=== PATIENT | male | born 1990 | race Caucasian/White ===

== ENCOUNTER 2021-12-28 12:22 | Emergency (ER) | payer SELFPAY ==
[2021-12-28 12:23] VITALS: BP 148/90; PULSE 92; RESP 18; TEMP 36.7; O2SAT 100; BMI 21.2
--- NOTE | 2021-12-28 12:32 | ECG_ITS ---
APPROVED REPORT Exam: Resting ECG HR:85 bpm ECG Measurements Heart Rate 85 AXES MA 147 P 59 QRSd 92 QRS 86 QT 335 T 19 QTc 377 Conclusion SINUS RHYTHM MINIMAL VOLTAGE CRITERIA FOR LVH, CONSIDER NORMAL VARIANT [MEETS CRITERIA IN ONE OF: R(aVL), S(V1), R(V5), R(V5/V6)+S(V1)] BORDERLINE ECG UNCONFIRMED REPORT Electronically signed by : Jude Betancourt MD 12/28/2021 17:40:59
[2021-12-28 12:44] LABS: Coronavirus 19, PCR Not Detected (NotDetected); Influenza A, PCR Not Detected (NotDetected); Influenza B, PCR Not Detected (NotDetected)
--- NOTE | 2021-12-28 12:49 | PC.NURSE ---
ED MD at
[2021-12-28 12:55] LABS: Basophils # 0.1 K/mm3 (0-0.2); Basophils % 0.7 % (0.1-2.0); Eosinophils # 0.1 K/mm3 (0.0-0.4); Eosinophils % 0.8 % (0.1-12.0); Hematocrit 36.1 % (42.0-52.0); Hemoglobin 12.1 g/dL (14.1-18.0); Lymphocytes # 1.2 K/mm3 (0.7-4.5); Lymphocytes % 11.7 % (10-50); Mean Corpuscular HGB Conc 33.4 g/dL (31.8-35.4); Mean Corpuscular Hemoglobin 31.3 pg (27.0-31.2); Mean Corpuscular Volume 93.7 fl (80-94); Mean Platelet Volume 7.6 fl (7.4-10.4); Monocytes # 0.5 K/mm3 (0.1-1.0); Monocytes % 5.2 % (1.7-9.3); Neutrophils # 8.2 K/mm3 (1.8-7.8); Neutrophils % 81.6 % (37.0-80.0); Platelet Count 481 K/mm3 (142-424); Red Blood Count 3.85 M/mm3 (4.60-6.20); Red Cell Distribution Width 12.3 % (11.5-17.5); White Blood Count 10.1 K/mm3 (4.8-10.8)
[2021-12-28 13:00] VITALS: BP 122/71; PULSE 71; O2SAT 98
[2021-12-28 13:04] LABS: Chloride 102 mmol/L (98-107); Potassium 3.8 mmoL/L (3.5-5.1); Sodium 138 mmol/L (136-145)
[2021-12-28 13:07] LABS: Alanine Aminotransferase 24 U/L (12-78); Albumin/Globulin Ratio 1.1 (1.1-1.8); Alkaline Phosphatase 84 U/L (38-126); Anion Gap 13.8 mEq/L (5-15); Aspartate Amino Transferase 28 U/L (17-59); Bilirubin,Total 1.4 mg/dl (0.2-1.3); Blood Urea Nitrogen 9 mg/dl (9-20); Calcium 8.6 mg/dl (8.4-10.2); Carbon Dioxide 26 mmol/L (22.0-30.0); Creatinine Clearance Estimated 147 mL/min (50-200); Estimated Glomerular Filt Rate 114 ml/min (>60); GFR (African American) 137 ML/MIN (>60); Globulin 3.5 g/dL (1.3-3.2); Glucose 96 mg/dl (74-100); Total Protein,Serum 7.5 g/dl (6.3-8.2)
[2021-12-28 13:30] VITALS: BP 115/66; PULSE 67
--- NOTE | 2021-12-28 13:42 | [facility].EDWEAK ---
ED Disposition Clinical Impression: Generalized weakness Disposition: Home, Self-Care Condition on Discharge: Good Instructions: DI for Muscle Weakness Referrals: Provider,Ana, [Primary Care Provider] - Marlon Youssef MD [Staff Physician] - - Critical Care Critical Care Time: No Attestation: On 12/28/21, the high probability of a clinically significant, sudden or life threatening deterioration of the following system(s) required my full and direct attention, intervention and personal management. The time I documented below is in addition to time spent performing reported procedures but includes the following listed in this critical care notation. Medical Decision Making - Medical Records Medical records reviewed: Yes: I reviewed the patient's medical records. - Shankar Inquiry Pt receiving controlled substance: No Vital Signs: 12/28/21 12:23 12/28/21 13:00 12/28/21 13:30 Temperature 98.1 F Temperature Source Oral Pulse Rate 71 67 Pulse Rate [Left Radial] 92 H Respiratory Rate 18 Blood Pressure 122/71 115/66 Blood Pressure [Right Arm] 148/90 H Blood Pressure Mean 84 81 Blood Pressure Mean [Right Arm] 109 Blood Pressure Source [Right Arm] Automatic Cuff Blood Pressure Position [Right Arm] Sitting 02 Sat by Pulse Oximetry 100 98 Oxygen Delivery Method Room Air Room Air 12/28/21 14:00 Temperature Temperature Source Pulse Rate 71 Pulse Rate [Left Radial] Respiratory Rate Blood Pressure 125/66 Blood Pressure [Right Arm] Blood Pressure Mean 80 Blood Pressure Mean [Right Arm] Blood Pressure Source [Right Arm] Blood Pressure Position [Right Arm] 02 Sat by Pulse Oximetry 100 Oxygen Delivery Method - Lab Data Lab Results 12/28/21 12:29: SARS-CoV-2 (PCR) Not detected, Influenza A Untype (PCR) Not detected, Influenza Type B (PCR) Not detected 12/28/21 12:35: WBC 10.1, RBC 3.85 L, Hgb 12.1 L, Hct 36.1 L, MCV 93.7, MCH 31.3 H, MCHC 33.4, RDW 12.3, Plt Count 481 H, MPV 7.6, Neut % (Auto) 81.6 H, Lymph % (Auto) 11.7, Weston % (Auto) 5.2, Eos % (Auto) 0.8, Baso % (Auto) 0.7, Neut # (Auto) 8.2 H, Lymph # (Auto) 1.2, Weston # (Auto) 0.5, Eos # (Auto) 0.1, Baso # (Auto) 0.1 12/28/21 12:35: Sodium 138, Potassium 3.8, Chloride 102, Carbon Dioxide 26, Anion Gap 13.8, BUN 9, Creatinine 0.80, Estimated Creat Clear 147, Estimated GFR 114, Est GFR ( Amer) 137, Glucose 96, Calcium 8.6, Total Bilirubin 1.4 H, AST 28, ALT 24, Alkaline Phosphatase 84, Total Protein 7.5, Albumin 4.0, Globulin 3.5 H, Albumin/Globulin Ratio 1.1 12/28/21 14:25: Urine Color Yellow, Urine Appearance Clear, Urine pH 8.5, Ur Specific Harper 1.020, Urine Protein 1+, Urine Glucose (UA) Negative, Urine Ketones Negative, Urine Blood 1+, Urine Nitrate Negative, Urine Bilirubin Negative, Urine Urobilinogen 1.0, Ur Leukocyte Esterase Negative, Urine RBC 3-5, Urine WBC Occasional, Ur Squamous Epith Cells Occasional, Urine Bacteria Trace, Urine Mucus 1+ Result diagrams: 12/28/21 12:35 12/28/21 12:35 Orders (Tests/Meds): ED MEDICATIONS Discontinued Medications Generic Name Dose Route Start Last Admin Trade Name Prashantq PRN Reason Stop Dose Admin Sodium Chloride 1,000 mls @ 999 mls/hr 12/28/21 13:00 12/28/21 13:22 Sod Chlor 0.9% 1000ml Bag IV 12/28/21 14:00 999 mls/hr .Q1H1M TRINA Administration Ketorolac Tromethamine 30 mg 12/28/21 12:55 12/28/21 13:22 Ketorolac 30mg/Ml Vial IV 12/28/21 12:56 30 mg ONCE ONE Administration Ondansetron HCl 4 mg 12/28/21 12:55 12/28/21 13:22 Ondansetron 4mg/2ml Vial IV 12/28/21 12:56 4 mg ONCE ONE Administration - ECG Data Tracing #1 I reviewed this ECG and interpreted as documented below: Sinus rhythm 85 bpm, NE interval of 147 ms, normal QTC. Sinus rhythm with nonspecific changes. ECG initial impression date: 12/28/21 ECG initial impression time: 12:32 Normal Sinus Rhythm: Yes - Reevaluation(s) Time: 15:21 Reevaluation #
[2021-12-28 14:00] VITALS: BP 125/66; PULSE 71; O2SAT 100
[2021-12-28 14:32] LABS: Microscopic, Urine URINE MICROSCOPIC (MICROSCOPIC)
[2021-12-28 14:39] LABS: Appearance,Urine CLEAR (Clear); Bilirubin,Urine Negative (Negative); Blood, Urine 1+ (Negative); Color,Urine YELLOW (Yellow); Glucose,Urine (UA) Negative (Negative); Ketones,Urine Negative (Negative); Leukocyte Esterase,Urine Negative (Negative); Nitrate,Urine Negative (Negative); PH,Urine 8.5 (5.0-8.5); Protein,Urine 1+ (Negative)
[2021-12-28 14:49] LABS: Bacteria,Urine Trace /lpf; Mucus,Urine 1+ /lpf; Squamous Epithelial Cell,Urine Occasional #/hpf (0-5); WBC,Urine Occasional #/hpf (0-3)
[2021-12-28 15:50] VITALS: BP 125/66; PULSE 71; RESP 18; TEMP 36.7; O2SAT 100
== END 2021-12-28 15:51 | disposition home or self-care (01) ==
PROVIDERS: Emergency Provider Emergency Medicine
DX: R53.1 Weakness (principal); R53.81 Other malaise; I95.9 Hypotension, unspecified; M79.10 Myalgia, unspecified site; R63.4 Abnormal weight loss; Z20.822 Contact with and (suspected) exposure to COVID-19; Z68.21 Body mass index [BMI] 21.0-21.9, adult
CPT/HCPCS: 80053; 81001; 85025; 93005; 96361; 96365; 96374; 96375; 99284; C9803; J2405; U0003; U0005